=== PATIENT | male | born 1955 ===

== ENCOUNTER 2018-03-25 11:42 | Emergency (ER) | payer MEDICARE ==
[2018-03-25 11:51] VITALS: RESP 18; O2SAT 100
[2018-03-25] MEDS ORDERED: Sodium Chloride 0.9% 1,000 ML IV STA (12:04)
[2018-03-25] MEDS ORDERED: Sodium Chloride 0.9% 1,000 ML ONE (12:16)
[2018-03-25 12:22] LABS: BASO % 0.3 % (0.0-2.0); EOS # 0.2 K/uL (0.0-0.7); EOS % 1.6 % (0.0-4.0); HEMOGLOBIN 16.5 g/dL (12.0-18.0); LYMPH # 1.5 K/uL (1.0-4.3); LYMPH % 15.6 % (20.0-40.0); MEAN CELL VOLUME 86.2 fL (80.0-94.0); MEAN CORPUSCULAR HEMOGLOBIN 29.8 pg (27.0-31.0); MEAN CORPUSCULAR HGB CONC 34.5 g/dL (33.0-37.0); MEAN PLATELET VOLUME 8.6 fL (7.2-11.7); MONO # 0.5 K/uL (0.0-0.8); MONO % 5.6 % (0.0-10.0); NEUT # 7.3 K/uL (1.8-7.0); NEUT % 76.9 % (50.0-75.0); RBC 5.56 Mil/uL (4.40-5.90); RED CELL DISTRIBUTION WIDTH 14.2 % (11.5-14.5); WHITE BLOOD COUNT 9.5 K/uL (4.8-10.8)
[2018-03-25 12:39] LABS: ALB/GLOB RATIO 1.3 (1.0-2.1); ALBUMIN 4.6 g/dL (3.5-5.0); ALT/SGPT 25 U/L (21-72); AST/SGOT 32 U/L (17-59); BLOOD UREA NITROGEN 15 mg/dL (9-20); CALCIUM 9.2 mg/dl (8.6-10.4); GFR AFRICAN-AMERICAN > 60; GFR NON-AFRICAN AMERICAN 51; LIPASE 76 U/L (23-300)
[2018-03-25 12:42] LABS: SQUAMOUS EPITHIAL 1 /hpf (0-5); URINE BILIRUBIN NEGATIVE (NEGATIVE); URINE BLOOD 3+ (NEGATIVE); URINE CLARITY Hazy (Clear); URINE COLOR Amber (YELLOW); URINE GLUCOSE (UA) NORMAL (Normal); URINE LEUKOCYTE ESTERASE NEG Leu/uL (Negative); URINE PROTEIN 1+ mg/dL (NEGATIVE); URINE UROBILINOGEN NORMAL mg/dL (0.2-1.0)
[2018-03-25 13:38] VITALS: BP 108/71; PULSE 67; TEMP 97.9
--- NOTE | 2018-03-25 15:03 | CT ---
PROCEDURE: CT Abdomen and Pelvis without intravenous contrast HISTORY: Right flank pain COMPARISON: Contrast abdomen pelvis CT 02/15/2012. TECHNIQUE: Helical CT of the abdomen and pelvis was performed without oral or intravenous contrast as per referring physician request. Contrast dose: None Radiation dose: Total exam DLP = 372.54 mGy-cm. This CT exam was performed using one or more of the following dose reduction techniques: Automated exposure control, adjustment of the mA and/or kV according to patient size, and/or use of iterative reconstruction technique. FINDINGS: LOWER THORAX: Linear atelectasis or fibrosis left low right lower lobe. LIVER: Unremarkable. No gross lesion or ductal dilatation. GALLBLADDER AND BILE DUCTS: Unremarkable. PANCREAS: Unremarkable. No gross lesion or ductal dilatation. SPLEEN: Unremarkable. ADRENALS: Unremarkable. No mass. KIDNEYS AND URETERS: Borderline right hydronephrosis. No left hydronephrosis or radiodense urolithiasis bilaterally. . No solid mass. VASCULATURE: Unremarkable. No aortic aneurysm. BOWEL: Scattered colonic diverticular appreciated in various large-bowel segments per concentrated primarily at the sigmoid colon with potentially chronic mural thickening. No significant parity calling reaction to suggest acute diverticulitis at this time. Clinically correlate nevertheless. Colonoscopy may be helpful to further evaluate the sigmoid colon mural thickening. APPENDIX: Unremarkable. Normal appendix. PERITONEUM: Unremarkable. No free fluid. No free air. LYMPH NODES: Limited retroperitoneal lymphadenopathy is appreciate including 1.8 x 1.1 cm left periaortic lymph node. BLADDER: Urinary bladder is only limited distention without focal nodular thickening apparent. A punctate 2 mm calculus identified at the mid right urinary bladder base. REPRODUCTIVE: Enlarged prostate gland. BONES: No acute fracture. OTHER FINDINGS: None. IMPRESSION: 1. Scattered colonic diverticulosis with diverticular changes concentrated at the sigmoid colon without overt pattern of acute diverticulitis at this time. Mural thickening of the sigmoid colon may be chronic and related to diverticular change. Follow-up colonoscopy advised to exclude underlying malignancy here. Subclinical acute diverticulitis not completely excluded. 2. Punctate calculus in the urinary bladder likely reflects recently expelled ureteral calculus 2 mm greatest dimension. Borderline right hydronephrosis. 3. Enlarged prostate gland.
--- NOTE | 2018-03-25 15:11 | C.PDOC ---
Time Seen by Provider: 03/25/18 11:57 Chief Complaint (Nursing): Abdominal Pain History Per: Patient, Family Onset/Duration Of Symptoms: Hrs (since this morning) Current Symptoms Are (Timing): Still Present Severity: Severe Location Of Pain/Discomfort: RLQ Radiation Of Pain To:: Flank Quality Of Discomfort: "Pain" Associated Symptoms: Nausea, Vomiting Exacerbating Factors: None Alleviating Factors: None Additional History Per: Prior Records Past Medical History Reviewed: Historical Data, Nursing Documentation, Vital Signs Vital Signs: Last Vital Signs Temp 97.9 F 03/25/18 13:37 Pulse 67 03/25/18 13:37 Resp 18 03/25/18 13:37 BP 108/71 03/25/18 13:37 Pulse Ox 100 03/25/18 13:37 - Medical History PMH: Anxiety, Depression - [facility] Procedures VACCINATION NEC (05/20/13) Family History: States: Unknown Family Hx - Social History Hx Alcohol Use: Yes Hx Substance Use: No Review Of Systems Except As Marked, All Systems Reviewed And Found Negative. Constitutional: Negative for: Fever, Weakness Cardiovascular: Negative for: Chest Pain Respiratory: Negative for: Shortness of Breath Gastrointestinal: Positive for: Nausea, Vomiting, Abdominal Pain. Negative for : Diarrhea, Melena, Hematochezia, Hematemesis Genitourinary: Negative for: Dysuria, Scrotal Pain Musculoskeletal: Negative for: Neck Pain, Back Pain Skin: Negative for: Rash Neurological: Negative for: Weakness, Numbness Physical Exam - Physical Exam Appears: Non-toxic, Other (Uncomfortable in pain) Skin: Normal Color, Warm, Dry, No Rash Head: Atraumatic, Normacephalic Eye(s): bilateral: PERRL, EOMI Oral Mucosa: Moist Neck: Normal ROM, Supple Cardiovascular: Rhythm Regular Respiratory: Normal Breath Sounds, No Accessory Muscle Use Gastrointestinal/Abdominal: Soft, No Tenderness Back: No CVA Tenderness Male Genital: No Testicular Tenderness, No Testicular Swelling, No Scrotal Swelling Extremity: Normal ROM Neurological/Psych: Oriented x3, Normal Motor, Normal Sensation ED Course And Treatment - Laboratory Results Result Diagrams: 03/25/18 12:15 03/25/18 12:15 Interpretation Of Abnormal: Microscopic hematuria O2 Sat by Pulse Oximetry: 100 Pulse Ox Interpretation: Normal - CT Scan/US CT abd/pelv Other Rad Studies (CT/US): Read By Radiologist, Radiology Report Reviewed CT/US Interpretation: IMPRESSION: 1. Scattered colonic diverticulosis with diverticular changes concentrated at the sigmoid colon without overt pattern of acute diverticulitis at this time. Mural thickening of the sigmoid colon may be chronic and related to diverticular change. Follow-up colonoscopy advised to exclude underlying malignancy here. Subclinical acute diverticulitis not completely excluded. 2. Punctate calculus in the urinary bladder likely reflects recently expelled ureteral calculus 2 mm greatest dimension. Borderline right hydronephrosis. 3. Enlarged prostate gland. Progress Note: Pain resolved. Reassessment Condition: Improved Progress - Interventions Interventions:: Observation, Intravenous fluid - Medications Administered Intravenous: Antiemetic, NSAID - Data Reviewed Data Reviewed: Lab, Diagnostic imaging, Old records - Patient Status Patient status: Mostly improved - Continuity of Care Discussed patient case with:: Patient, Family-HIPPA compliant, ED Nurse - Patient Plan Patient Plan: Discharge, F/U with PCP, Continue present meds Disposition Counseled Patient/Family Regarding: Studies Performed, Diagnosis, Need For Followup, Rx Given - Disposition Referrals: Ronny Smith DO [Staff Provider] - Ronny Ojeda Jr., MD [Staff Provider] - Disposition: HOME/ ROUTINE Disposition Time: 15:12 Condition: IMPROVED Additional Instructions: Follow up with your doctor and with a Urologist. Return to the ER if you develop fever, vomiting, pain, trouble urinating, worsening of symptoms or if you have any other concerns. Instructions: Renal Colic (DC) Forms: [employer] (Congolese) - Clinical Impression Clinical Impression: Renal colic on right side
== END 2018-03-25 15:33 | disposition home or self-care (01) ==
LOC: C.ER 11:42
DX: N23 Unspecified renal colic (principal)
CPT/HCPCS: 74176; 80053; 81001; 83690; 85025; 96361; 96374; 96375; 99284; J1885; J2405; J7040